=== PATIENT | male | born 1975 | race Caucasian/White ===

== ENCOUNTER 2025-10-21 12:43 | Emergency (ER) | payer SELFPAY ==
[~2025-10-21] VITALS: Ht 167.6 cm; Wt 64.0 kg
[2025-10-21 12:45] VITALS: O2SAT 99
[2025-10-21] MEDS ORDERED: IBUP-2030 MT (14:01)
[2025-10-21] MEDS ORDERED: CAPS42.514 TP (14:01)
[2025-10-21] MEDS: KETOROLAC 30MG/ML VIAL IM ONE (14:07)
[2025-10-21 14:23] VITALS: BP 135/77; PULSE 79; RESP 15; TEMP 37.1; O2SAT 99
== END 2025-10-21 14:50 | disposition home or self-care (01) ==
LOC: ER 12:43
DX: M79.671 Pain in right foot (principal); I10 Essential (primary) hypertension
CPT/HCPCS: 73610; 73630; 99284; J1885; Z7610